=== PATIENT | male | born 1995 | race Two or more races ===

== ENCOUNTER 2020-02-04 16:45 | Emergency (ER) | payer OTHER ==
[~2020-02-04] VITALS: Ht 172.7 cm; Wt 88.5 kg
[2020-02-04 17:01] VITALS: BP 132/89
== END 2020-02-04 17:58 | disposition home or self-care (01) ==
LOC: ER 16:45
DX: S66.911A Strain of unspecified muscle, fascia and tendon at wrist and hand level, right hand, initial encounter (principal); X50.1XXA Overexertion from prolonged static or awkward postures, initial encounter; Y93.89 Activity, other specified; Y92.89 Other specified places as the place of occurrence of the external cause; Y99.8 Other external cause status
CPT/HCPCS: 73130